=== PATIENT | male | born 1975 | race Two or more races ===

== ENCOUNTER 2024-08-22 18:10 | Inpatient (IN) | payer OTHER ==
[~2024-08-22] VITALS: Ht 177.8 cm; Wt 107.2 kg
--- NOTE | 2024-08-22 18:34 | ED.PDOC ---
HPI Comments HPI: Poor Historian. 48-year-old male [place] emergency department [place] evaluation of midsternal chest pain nonradiating. Patient at the outside facility had an EKG that was unremarkable according to the From the facility who communicated with me on the phone. The doctor also stated the patient was found with elevated ALT and AST. Patient was given aspirin and hydrochlorothiazide and lisinopril. First and 2nd troponins were normal. Patient also had a chest x-ray. Patient also received nitroglycerin sublingual at the other facility. Per report, patient had one-week history of intermittent chest pain he stopped taking his blood pressure medication a month ago. He had a routine dental appointment today and was noted to have blood pressure of 1 70s systolic over 140 diastolic. He was sent to the ER for further evaluation. Patient denies any other acute symptoms. Past Medical History: Hypertension untreated Past Surgical History: Hernia repair Denies any use of drugs or alcohol or tobacco REVIEW OF SYSTEMS: CONSTITUTIONAL: Denies acute: fever, diaphoresis, chills, generalized weakness. HEAD: Denies acute: headache, photophobia Eyes: Denies acute: Double vision, vision loss, eye pain, eye discharge. EARS: Denies acute: tinnitus, hearing loss, ear discharge, ear pain, THROAT: Denies acute: sore throat, swelling, difficulty swallowing , pain with swallowing, change in voice. NECK: Denies acute: neck pain, neck swelling, stiff neck. HEART: Denies acute : palpitations, LUNGS: Denies acute: SOB, wheezing, cough, hemoptysis ABDOMEN: Denies acute: abdominal pain, Nausea, Vomiting, diarrhea, melena , hematemesis, hematochezia SKIN: Denies acute: rash, redness, lesions, itchiness. EXTREMITIES: Denies acute: calf pain, numbness, tingling, weakness, denies pain in extremity. Denies acute: Low back pain. Neuro: Denies acute: focal neurological deficit, motor or sensory focal neurological deficit, tremors, seizure like activity, confusion, dizziness, change in mental status, loss of bowel or bladder function, cauda equina like symptoms. : Denies acute: dysuria, hematuria, flank pain, increase in urinary frequency. PSYCH: Denies acute: hallucination, suicidal ideation, homicidal ideation. PHYSICAL EXAM: General: --no-----acute distress, awake and alert. Head: normocephalic, atraumatic. Neck: supple, trachea is midline, no swelling. Throat: Normal phonation. Eyes:, no erythema, no purulent discharge, no proptosis, no icterus. Heart: regular rate, regular rhythm, no significant murmur appreciated. Lungs: no apparent respiratory distress, Able to speak in full sentences. No wheezing, no rhonchi, no crackles. No stridors Clear to auscultation bilaterally. Abdomen: non tender to palpation, non distended, soft, no guarding, no rebound, + bowel sounds. Neuro: Awake, Alert, oriented to name, self, situation, follows commands GCS=15. Speech is normal. Skin: no petechia, no purpura, no cyanosis, non-pale, not jaundice. Lower extremities: --no - Pitting edema no deformity, no focal swelling, no calf TTP. Makes eye contact. moves all four extremities. Face: no apparent facial droop. Ambulating in the ED independently. ED COURSE: DISCLAIMER: This medical document was created using an electronic medical record system with voice recognition software and computerized dictation system. Although this document has been carefully reviewed, there might still be some phonetic and typographical errors. Occasional wrong-word or "sound-alike" substitutions may have occurred due to the inherent limitations of voice recognition software. These areas are purely typographical due to imperfections of the software programs and do not reflect any compromise in the patient's medical care. Please read the chart carefully and recognize, using context, where these substitutions have occurred. Chief Complaint: High Blood Pressure Time Seen by MD: 18:15 Reviewed Notes: Allergies Allergies: Coded Allergies: NO KNOWN ALLERGIES (Unverified , 08/22/24) Information Source: Patient X-Ray, Labs, Meds, VS Vital Signs Date Time Temp Pulse Resp B/P (MAP) Pulse Ox O2 Delivery O2 Flow Rate FiO2 08/22/24 18:46 98.5 71 16 144/97 (113) 96 98.5 Lab Test 08/22/24 19:50 08/22/24 19:32 08/22/24 18:57 Range/Units Troponin I High Sensitivity Pending < 3 L </=54 ng/L Urine Opiates Screen Pending Urine Fentanyl Screen Pending Urine Barbiturates Screen Pending Urine Phencyclidine Screen Pending Urine Amphetamines Screen Pending Urine Benzodiazepines Screen Pending Urine Cocaine Screen Pending Urine Cannabinoids Screen Pending White Blood Count 8.0 4.4-10.8 10^3/uL Red Blood Count 4.92 4.5-5.90 10^6/uL Hemoglobin 16.3 13.5-17.5 g/dL Hematocrit 46.7 41.0-53.0 % Mean Corpuscular Volume 94.9 80.0-100.0 fL Mean Corpuscular Hemoglobin 33.1 H 28.0-32.0 pg Mean Corpuscular Hemoglobin Concent 34.9 32.0-36.0 g/dL Red Cell Distribution Width 13.8 11.8-14.3 % Platelet Count 220 140-450 10^3/uL Mean Platelet Volume 8.3 6.9-10.8 fL Neutrophils (%) (Auto) 66.5 37.0-80.0 % Lymphocytes (%) (Auto) 23.8 10.0-50.0 % Monocytes (%) (Auto) 8.5 0.0-12.0 % Eosinophils (%) (Auto) 0.8 0.0-7.0 % Basophils (%) (Auto) 0.4 0.0-2.0 % Neutrophils # (Auto) 5.3 1.6-8.6 10 ^3/uL Lymphocytes # (Auto) 1.9 0.4-5.4 10 ^3/uL Monocytes # (Auto) 0.7 0-1.3 10 ^3/uL Eosinophils # (Auto) 0.1 0-0.8 10 ^3/uL Basophils # (Auto) 0 0-0.2 10 ^3/uL Nucleated Red Blood Cells 0.1 % Sodium Level 140 136-145 mmol/L Potassium Level 3.9 3.5-5.1 mmol/L Chloride Level 105 98-107 mmol/L Carbon Dioxide Level 27 20-31 mmol/L Anion Gap 8 5-15 Blood Urea Nitrogen 9 9-23 mg/dL Creatinine 1.15 0.700-1.30 mg/dL Glomerular Filtration Rate Calc 78 >90 mL/min BUN/Creatinine Ratio 7.8 L 10.0-20.0 Serum Glucose 110 H 74-106 mg/dL Lactic Acid Level 1.1 0.4-2.0 mmol/L Calcium Level 9.6 8.7-10.4 mg/dL Total Bilirubin 0.9 0.2-1.0 mg/dL Aspartate Amino Transferase (AST) 93 H 13-40 U/L Alanine Aminotransferase (ALT) 258 H 7-40 U/L Alkaline Phosphatase 93 46-116 U/L Total Protein 7.4 5.7-8.2 g/dL Albumin 5.0 H 3.2-4.8 g/dL Lipase 39 12-53 U/L [place] [address] Ph: [phone] DIAGNOSTIC IMAGING Diagnostic Imaging Report : [id number] Signed PATIENT: CONSTANTIN HEATH ACCT: [id number] UNIT: [id number] : 1975 LOC: ER ROOM / BED: / AGE / SEX: 48 / M ADM STATUS: REG ER SERVICE 26 ORDERING PHYSICIAN: CHRISSIE GRIMM DO PROCEDURE(s): CXRP - CHEST PORTABLE REASON: HTN ORDER NUMBER(s): [id number], ACCESSION NUMBER(s): [id number] CHEST RADIOGRAPH Indication: HTN Technique: Single frontal view of the chest was obtained Comparison: None FINDINGS: Lines and Tubes: None Lungs: No focal consolidation. Pleura: No effusion. No pneumothorax. Cardiomediastinal contours: Unremarkable Bones: No acute osseous abnormality. IMPRESSION: 1. No acute cardiopulmonary disease. ATED BY: JOSE LUIS RODAS Jr., DO DICTATED DATE/TIME: 08/22/241847 SIGNED BY: JOSE LUIS RODAS Jr., DO SIGNED DATE/TIME: 08/22/241847 CC: Departure 1 Departure Time of Disposition: 19:20 Impression: Primary Impression: Chest pain Additional Impression: Elevated LFTs Disposition: ADMITTED INPATIENT Admit to: Tele Condition: Guarded Discharged With: Self I personally scribed for CHRISSIE GRIMM DO ([email or web address]) on 08/22/24 at 18:34. Electronically submitted by Annelise Galindo ([email or web address]). I personally scribed for CHRISSIE GRIMM DO ([email or web address]) on 08/22/24 at 20:22. Electronically submitted by Annelise Galindo ([email or web address]). CHRISSIE GRIMM DO Aug 22, 2024 18:34
--- NOTE | 2024-08-22 18:51 | DVH ---
CHEST RADIOGRAPH Indication: HTN Technique: Single frontal view of the chest was obtained Comparison: None FINDINGS: Lines and Tubes: None Lungs: No focal consolidation. Pleura: No effusion. No pneumothorax. Cardiomediastinal contours: Unremarkable Bones: No acute osseous abnormality. IMPRESSION: 1. No acute cardiopulmonary disease.
[2024-08-22 19:19] LABS: Hematocrit 46.7 % (41.0-53.0); Hemoglobin 16.3 g/dL (13.5-17.5); Mean Corpuscular Hemoglobin 33.1 pg (28.0-32.0); Mean Corpuscular Volume 94.9 fL (80.0-100.0); Nucleated Red Blood Cells % 0.1 %
[2024-08-22 19:30] LABS: Alkaline Phosphatase 93 U/L (46-116); Anion Gap 8 (5-15); BUN/Creatinine Ratio 7.8 (10.0-20.0); Bilirubin, Total 0.9 mg/dL (0.2-1.0); Calcium 9.6 mg/dL (8.7-10.4); Carbon Dioxide 27 mmol/L (20-31); Chloride 105 mmol/L (98-107); Lipase 39 U/L (12-53); Potassium 3.9 mmol/L (3.5-5.1); Sodium 140 mmol/L (136-145); Total Protein 7.4 g/dL (5.7-8.2)
[2024-08-22 19:31] LABS: Alanine Aminotransferase 258 U/L (7-40); Albumin 5.0 g/dL (3.2-4.8); Blood Urea Nitrogen 9 mg/dL (9-23); Glucose 110 mg/dL (74-106)
[2024-08-22 20:31] LABS: Amphetamine Screen, Urine Neg (NEGATIVE); Barbiturate Scree,Urine Neg (NEGATIVE); Benzodiazephine Screen, Urine Neg (NEGATIVE); Cannabinoid Screen, Urine Neg (NEGATIVE); Cocaine Screen, Urine Neg (NEGATIVE); Opiate Scree,Urine Neg (NEGATIVE); Phencyclidine Screen, Urine Neg (NEGATIVE)
--- NOTE | 2024-08-22 23:25 | DVHHP2 ---
History of Present Illness History of Present Illness This is a 48-year-old male with past medical history of hypertension not on any medication [place] evaluation of chest pain. As per patient, having chest pain for one year , intermittent, feeling better with exertion or exercise,3 to 5/10 intensity, localized. Patient went for dental extraction and found his blood pressure was high 170/140 and send patient to ER for further management. As per ER physician in [facility] , having conversation with the physician from the facility where patient transferred-having elevated liver function, received aspirin, HCTZ, lisinopril. Troponin 2 times negative and nitroglycerin sublingual given at the other facility. In [facility] ER patient blood pressure 146/100. Patient stopped blood pressure medicine taking month ago and tried to controlled with diet and exercise. Denies any fever, SOB, cough, headache, photophobia, abdominal pain, dysuria, nausea, any focal weakness. Past Medical History: Hypertension not on any medication Past Surgical History: Bilateral inguinal Hernia repair Denies any use of drugs or alcohol or tobacco Allergy: No known allergy pcp: Unknown Review of Systems Constitutional: No: Fever, Chills, Sweats, Weakness, Malaise, Other Eyes: No: Pain, Vision change, Conjunctivae inflammation, Eyelid inflammation, Other, Redness ENT: No: Ear pain, Ear discharge, Nose pain, Nose discharge, Nose congestion, Mouth pain, Mouth swelling, Throat pain, Throat swelling, Other Respiratory: No: Cough, Dry, Shortness of breath, SOB with excertion, Wheezing, Hemoptysis, Pleuritic Pain, Sputum, Wheezing, Other Cardiovascular: Chest Pain; No: Palpitations, Orthopnea, Paroxysmal Noc. Dyspnea, Edema, Lt Headedness, Other Gastrointestinal: No: Nausea, Vomiting, Abdominal Pain, Diarrhea, Constipation, Melena, Hematochezia, Other Genitourinary: No Dysuria, No Frequency, No Incontinence, No Hematuria, No Retention, No Other Musculoskeletal: No: other, neck pain, shoulder pain, arm pain, back pain, hand pain, leg pain, foot pain Skin: No: Rash, Lesions, Jaundice, Bruising, Other Neurological: No: Weakness, Numbness, Incoordination, Change in speech, Confusion, Seizures, Other Allergies: Coded Allergies: NO KNOWN ALLERGIES (Unverified , 08/22/24) Exam Vital Signs Vital Signs Date Time Temp Pulse Resp B/P (MAP) Pulse Ox O2 Delivery O2 Flow Rate FiO2 08/22/24 20:55 90.0 90 18 146/100 (115) 95 90.0 General Appearance: Alert, Oriented X3, Cooperative, No acute distress HEENT: PERRLA, EOMI Respiratory: Clear to auscultation, Normal air movement Cardiovascular: Regular rate, Normal S1, Normal S2 Abdominal: Normal bowel sounds, Soft, No tenderness, No hepatospenomegaly Extremities: No clubbing, No cyanosis, Normal pulses, No tenderness/swelling Skin: No rashes, No breakdown Neuro: Normal gait, Normal speech, Strength at 5/5 X4 ext Labs/Xrays Labs Test 08/22/24 21:54 08/22/24 19:32 08/22/24 18:57 Range/Units Troponin I High Sensitivity < 3 L </=54 ng/L Urine Opiates Screen Neg NEGATIVE Urine Fentanyl Screen Neg NEGATIVE Urine Barbiturates Screen Neg NEGATIVE Urine Phencyclidine Screen Neg NEGATIVE Urine Amphetamines Screen Neg NEGATIVE Urine Benzodiazepines Screen Neg NEGATIVE Urine Cocaine Screen Neg NEGATIVE Urine Cannabinoids Screen Neg NEGATIVE White Blood Count 8.0 4.4-10.8 10^3/uL Red Blood Count 4.92 4.5-5.90 10^6/uL Hemoglobin 16.3 13.5-17.5 g/dL Hematocrit 46.7 41.0-53.0 % Mean Corpuscular Volume 94.9 80.0-100.0 fL Mean Corpuscular Hemoglobin 33.1 H 28.0-32.0 pg Mean Corpuscular Hemoglobin Concent 34.9 32.0-36.0 g/dL Red Cell Distribution Width 13.8 11.8-14.3 % Platelet Count 220 140-450 10^3/uL Mean Platelet Volume 8.3 6.9-10.8 fL Neutrophils (%) (Auto) 66.5 37.0-80.0 % Lymphocytes (%) (Auto) 23.8 10.0-50.0 % Monocytes (%) (Auto) 8.5 0.0-12.0 % Eosinophils (%) (Auto) 0.8 0.0-7.0 % Basophils (%) (Auto) 0.4 0.0-2.0 % Neutrophils # (Auto) 5.3 1.6-8.6 10 ^3/uL Lymphocytes # (Auto) 1.9 0.4-5.4 10 ^3/uL Monocytes # (Auto) 0.7 0-1.3 10 ^3/uL Eosinophils # (Auto) 0.1 0-0.8 10 ^3/uL Basophils # (Auto) 0 0-0.2 10 ^3/uL Nucleated Red Blood Cells 0.1 % Sodium Level 140 136-145 mmol/L Potassium Level 3.9 3.5-5.1 mmol/L Chloride Level 105 98-107 mmol/L Carbon Dioxide Level 27 20-31 mmol/L Anion Gap 8 5-15 Blood Urea Nitrogen 9 9-23 mg/dL Creatinine 1.15 0.700-1.30 mg/dL Glomerular Filtration Rate Calc 78 >90 mL/min BUN/Creatinine Ratio 7.8 L 10.0-20.0 Serum Glucose 110 H 74-106 mg/dL Lactic Acid Level 1.1 0.4-2.0 mmol/L Calcium Level 9.6 8.7-10.4 mg/dL Total Bilirubin 0.9 0.2-1.0 mg/dL Aspartate Amino Transferase (AST) 93 H 13-40 U/L Alanine Aminotransferase (ALT) 258 H 7-40 U/L Alkaline Phosphatase 93 46-116 U/L Total Protein 7.4 5.7-8.2 g/dL Albumin 5.0 H 3.2-4.8 g/dL Lipase 39 12-53 U/L SEPSIS Sepsis Screen Date sepsis recognized/suspect: Aug 22, 2024 Time Sepsis recognized/suspect: 1814 Recent Procedure: No On Antibiotic Therapy: No Respiratory Rate >20: No Heart Rate >90: No Temp<36 C (96.8 F) or >38.3 C: No SBP <90 or MAP <65 mmHG: No New Acute Mental Status Change: No Is the patient on CPAP, BIPAP,: No Physician Orders Milk Handler (08/22/24 ) Chest Portable (08/22/24 18:27) Electrocardigram (08/22/24 18:27) Vital Signs Date Time Temp Pulse Resp B/P (MAP) Pulse Ox O2 Delivery O2 Flow Rate FiO2 08/22/24 20:55 90.0 90 18 146/100 (115) 95 90.0 08/22/24 18:46 98.5 71 16 144/97 (113 96 98.5 Laboratory Tests Test 08/22/24 18:57 Lactic Acid Level 1.1 mmol/L (0.4-2.0) White Blood Count 8.0 10^3/uL (4.4-10.8) Assessment/Plan Assessment/Plan # CHEST PAIN RULE OUT ACS -Patient transferred from another facility to rule out chest pain -Received aspirin, nitroglycerin, lisinopril, HCTZ another facility -CXR-no acute cardiopulmonary disease -Troponin<3, repeat troponin <3 -Lipase 39 -Lactic acid 1.1 -Urine drug screening-negative -[id number] mg p.o. daily -Hold statin for now due to elevated liver enzymes -Nitroglycerin sublingually p.r.n. for chest pain -[id number] mg p.o. daily # UNCONTROLLED HYPERTENSION -In ER patient blood pressure 146/100 -Start losartan 25 mg p.o. daily -Monitor blood pressure # ELEVATED LIVER ENZYME -AST 93, ALT 258, ALP 93 -Ultrasound abdomen -Acute hepatitis panel -Lipid profile, THS, A1c # Obesity, BMI 27.5 -Lifestyle modification Diet: Hepatic diet GI prophylaxis: Pantoprazole 40 mg p.o. daily DVT prophylaxis: Ambulating Dose of care discussions,27 minute spent. Full code status. Case discussed with Dr. Charles Plan discussed with: Patient, Other (NURSE) Date of Service: Aug 22, 2024 Billing Provider: ALICIA CHARLES MD Common Visit Codes: [id number] INP/OBS CARE (HIGH) Secondary Visit Codes: [id number] CARE PLAN 30 MINUTES HERBERTH HUTCHISON RESIDENT Aug 22, 2024 23:25
[2024-08-22] MEDS ORDERED: MORPHINE SULFATE INJ 2 MG/ml SYRG IV PRN (23:30)
[2024-08-22] MEDS ORDERED: NITROGLYCERIN 0.4 MG SL TAB SL PRN (23:30)
[2024-08-23] VITALS (7 sets, daily range): BP systolic 116–131; BP diastolic 75–95; PULSE 66–88; RESP 16–19; TEMP 97–98; O2SAT 95–98
--- NOTE | 2024-08-23 01:29 | DVH ---
CLINICAL INFORMATION: 48 years old, Male; elevated alkaline phosophatase. TECHNIQUE: Grayscale sonographic imaging of the abdomen was performed, assisted by color Doppler haroon hnique. COMPARISON: None FINDINGS: The gallbladder wall measures 3 mm in thickness, within normal limits. No stones are seen. Negative reported sonographic Cornejo's sign. The common bile duct measures 5 mm in diameter, within normal li mits. The liver measures 17.0 cm and demonstrates homogeneous echotexture. The pancreas was not visualized. IMPRESSION: 1. No cholelithiasis or sonographic evidence for acute cholecystitis. 2. Mild hepatomegaly.
[2024-08-23] MEDS: LOSARTAN POTASSIUM 25 MG TAB PO ONE (03:19)
[2024-08-23 07:48] LABS: Triglycerides 130 mg/dL (< 150)
[2024-08-23 07:49] LABS: Cholesterol 175 mg/dL (< 200)
[2024-08-23 07:51] LABS: HDL Cholesterol 90 mg/dL (40-59)
[2024-08-23] MEDS: PANTOPRAZOLE 40 MG/10 ML VIAL INJ IV SCH (10:11)
[2024-08-23] MEDS: LOSARTAN POTASSIUM 25 MG TAB PO SCH (10:11)
[2024-08-23 10:52] LABS: Urine Protein, UAD Negative (Negative)
--- NOTE | 2024-08-23 10:59 | DVHPNRES ---
Progress Note Date Seen: Aug 23, 2024 Resident Creating Document: WALLY MILLER RESIDENT Medical Necessity Reason Pt with a Central, PICC or Fol: No Subjective Review of Systems This is a 48-year-old male with hypertension not on medications who was transferred from [facility] for the evaluation of chest pain and hypertension. Patient is A&O x3, reports that he stopped his blood pressure medication few months back as he was told that medications are poison to human body. He reports chest pain, constant for 24 hours, nonexertional, pressure type, nonradiating, improves with stretching his arms, for the past 1 year, also reports palpitations and shortness of breaths during the pain episode. Patient denies nausea, vomiting, diaphoresis, any abdominal or urinary symptoms at this time. EKG completed in [facility], showed sinus rhythm, LVH criteria. Troponins negative. 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 Regular heart sounds, no lower extremity edema. Reports feeling fine. No active chest pain. Objective vital signs Vital Sign Date Time Temp Pulse Resp B/P (MAP) Pulse Ox O2 Delivery O2 Flow Rate FiO2 08/23/24 10:11 135/74 08/23/24 08:42 97.4 66 16 97 97.4 08/23/24 04:00 Room Air* 0 21 medications Current Medications Medications Dose Ordered Sig/Jonelle Route Start Time Stop Time Status Last Admin Dose Admin Nitroglycerin 0.4 mg Q5MINP PRN SL 08/22/24 23:30 Morphine Sulfate 2 mg Q30M PRN IV 08/22/24 23:30 Losartan Potassium 25 mg DAILY PO 08/23/24 10:00 08/23/24 10:11 25 MG Aspirin 81 mg DAILY PO 08/23/24 10:00 08/23/24 10:12 81 MG Pantoprazole Sodium 40 mg DAILY IV 08/23/24 10:00 08/23/24 10:11 40 MG Examination Obese male patient comfortably sitting in the bed, no acute distress General: Obese, afebrile, palor, mucosae are moist Cardiovascular: Regular S1 and S2. No murmurs, gallops or rubs. No JVD elevation. No pedal edema Respiratory: Normal B/L air entry on room air. Clear lung sounds on auscultation Abdomen: Soft, nontender, nondistended, normoactive bowel sounds, no rebound tenderness, no organomegaly, no masses Genitourinary: Deferred MSK/skin: Mobilizes 4 limbs. Skin is dry and warm Neurological: No motor, no sensitive deficits, normal speech. Pupils are isocoric and reactive. Psych/Mental Status: A/Ox3 laboratory and microbiology Laboratory Tests 08/22/24 18:57 Test 08/22/24 18:57 Range/Units Serum Glucose 110 H 74-106 mg/dL Labs and/or images reviewed: Labs reviewed by me, Image(s) reviewed by me Problem List/Assessment/Plan Problem List/Assessment/Plan Acute chest pain, rule out ACS Uncontrolled hypertension Medication noncompliance Continue aspirin and atorvastatin daily 10 year ASCVD risk score 3% EKG shows LVH criteria Cardiology consulted given risk factors as his hypertension and obesity for stress test Remarkable family history for stroke and diabetes in parents Troponins unremarkable Started losartan 25 mg daily cardiac diet Likely Nonalcoholic steatohepatitis Transaminitis Hepatitis panel pending Obesity Counseled regarding lifestyle and dietary habits Pantoprazole 40 mg daily DVT prophylaxis not indicated can patient is ambulating Plan discussed with patient in which all questions have been answered Goals of care discussed for more than 20 minutes, full code status Case discussed with Dr. Bolivar, cardiology consultation pending. Plan discussed with: Patient My Orders My Orders Orders - WALLY MILLER Procedure Category Date Status Time Urinalysis LAB 08/23/24 In Process 09:05 Date of Service: Aug 23, 2024 Billing Provider: ANNIKA BERNARD MD Common Visit Codes: [id number] INP/OBS CARE(HIGH) WALLY MILLER Aug 23, 2024 10:59 ANNIKA BERNARD MD Aug 25, 2024 00:23
--- NOTE | 2024-08-23 11:25 | ECG ---
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
[2024-08-24] VITALS (7 sets, daily range): BP systolic 116–149; BP diastolic 66–89; PULSE 75–115; RESP 16–18; TEMP 97–98.1; O2SAT 96–98
[2024-08-24 07:48] LABS: Hematocrit 49.9 % (41.0-53.0); Hemoglobin 17.4 g/dL (13.5-17.5); Mean Corpuscular Hemoglobin 32.9 pg (28.0-32.0); Mean Corpuscular Volume 94.4 fL (80.0-100.0); Nucleated Red Blood Cells % 0.2 %
[2024-08-24 08:02] LABS: Anion Gap 13 (5-15); Carbon Dioxide 22 mmol/L (20-31)
[2024-08-24 08:05] LABS: Calcium 10.3 mg/dL (8.7-10.4); Chloride 104 mmol/L (98-107); Potassium 3.7 mmol/L (3.5-5.1); Sodium 139 mmol/L (136-145)
[2024-08-24 08:07] LABS: BUN/Creatinine Ratio 9.8 (10.0-20.0); Blood Urea Nitrogen 13 mg/dL (9-23); Glucose 82 mg/dL (74-106)
[2024-08-24] MEDS ORDERED: LOSA-533 PO (12:29)
--- NOTE | 2024-08-24 14:38 | DVHDSRES ---
Discharge Summary Date of Admission Resident Creating Document: CHANDLER OWUSU RESIDENT Aug 22, 2024 at 23:24 Date of Discharge: Aug 24, 2024 Admitting Diagnosis Acute chest pain rule out ACS Wounds: No wounds present at this time. Labs/Diagnostic Data: Laboratory Results Test 08/24/24 06:00 08/23/24 10:30 08/23/24 06:45 08/22/24 21:54 White Blood Count 8.7 10^3/uL (4.4-10.8) Red Blood Count 5.29 10^6/uL (4.5-5.90) Hemoglobin 17.4 g/dL (13.5-17.5) Hematocrit 49.9 % (41.0-53.0) Mean Corpuscular Volume 94.4 fL (80.0-100.0) Mean Corpuscular Hemoglobin 32.9 pg (28.0-32.0) Mean Corpuscular Hemoglobin Concent 34.9 g/dL (32.0-36.0) Red Cell Distribution Width 13.8 % (11.8-14.3) Platelet Count 248 10^3/uL (140-450) Mean Platelet Volume 8.5 fL (6.9-10.8) Neutrophils (%) (Auto) 56.1 % (37.0-80.0) Lymphocytes (%) (Auto) 32.8 % (10.0-50.0) Monocytes (%) (Auto) 8.5 % (0.0-12.0) Eosinophils (%) (Auto) 2.1 % (0.0-7.0) Basophils (%) (Auto) 0.5 % (0.0-2.0) Neutrophils # (Auto) 4.9 10 ^3/uL (1.6-8.6) Lymphocytes # (Auto) 2.8 10 ^3/uL (0.4-5.4) Monocytes # (Auto) 0.7 10 ^3/uL (0-1.3) Eosinophils # (Auto) 0.2 10 ^3/uL (0-0.8) Basophils # (Auto) 0 10 ^3/uL (0-0.2) Nucleated Red Blood Cells 0.2 % Sodium Level 139 mmol/L (136-145) Potassium Level 3.7 mmol/L (3.5-5.1) Chloride Level 104 mmol/L (98-107) Carbon Dioxide Level 22 mmol/L (20-31) Anion Gap 13 (5-15) Blood Urea Nitrogen 13 mg/dL (9-23) Creatinine 1.33 mg/dL (0.700-1.30) Glomerular Filtration Rate Calc 65 mL/min (>90) BUN/Creatinine Ratio 9.8 (10.0-20.0) Serum Glucose 82 mg/dL (74-106) Calcium Level 10.3 mg/dL (8.7-10.4) Urine Color Yellow (Yellow) Urine Clarity Clear (Clear) Urine pH 5.5 (5.0-9.0) Urine Specific [place] 1.023 (1.001-1.035) Urine Protein Negative (Negative) Urine Ketones 1+ (Negative) Urine Blood Negative /uL (Negative) Urine Nitrite Negative (Negative) Urine Bilirubin Negative (Negative) Urine Urobilinogen Normal mg/dL (Negative) Urine Leukocyte Esterase Negative /uL (Negative) Urine RBC 1 /hpf (0 - 3) Urine Microscopic WBC 1 /HPF (0-3) Urine Squamous Epithelial Cells None seen /hpf (<5) Urine Bacteria None seen /hpf (None Seen) Urine Hyaline Casts Few /lpf (0 - 2) Urine Mucus Few (None Seen) Urine Glucose Normal mg/dL (Normal) Hemoglobin A1c 5.1 % A1C (<5.7) Triglycerides Level 130 mg/dL (< 150) Cholesterol Level 175 mg/dL (< 200) LDL Cholesterol 63 mg/dL (< 100) HDL Cholesterol 90 mg/dL (40-59) Thyroid Stimulating Hormone (TSH) 1.31 uIU/mL (0.55-4.78) Troponin I High Sensitivity < 3 ng/L (</=54) Test 08/22/24 19:32 08/22/24 18:57 Urine Opiates Screen Neg (NEGATIVE) Urine Fentanyl Screen Neg (NEGATIVE) Urine Barbiturates Screen Neg (NEGATIVE) Urine Phencyclidine Screen Neg (NEGATIVE) Urine Amphetamines Screen Neg (NEGATIVE) Urine Benzodiazepines Screen Neg (NEGATIVE) Urine Cocaine Screen Neg (NEGATIVE) Urine Cannabinoids Screen Neg (NEGATIVE) Lactic Acid Level 1.1 mmol/L (0.4-2.0) Total Bilirubin 0.9 mg/dL (0.2-1.0) Aspartate Amino Transferase (AST) 93 U/L (13-40) Alanine Aminotransferase (ALT) 258 U/L (7-40) Alkaline Phosphatase 93 U/L (46-116) Total Protein 7.4 g/dL (5.7-8.2) Albumin 5.0 g/dL (3.2-4.8) Lipase 39 U/L (12-53) Other Laboratory Tests 08/24/24 06:00 Brief Hx & Hospital Course: This is a 48-year-old male with hypertension not on medications who was transferred from [facility] for the evaluation of chest pain and hypertension. Patient is A&O x3, reports that he stopped his blood pressure medication few months back as he was told that medications are poison to human body. He reports chest pain, constant for 24 hours, nonexertional, pressure type, nonradiating, improves with stretching his arms, for the past 1 year, also reported palpitations and shortness of breaths during the pain episode. Patient denied nausea, vomiting, diaphoresis, any abdominal or urinary symptoms on admission. EKG was performed on admission and showed sinus rhythm with LVH criteria but no ST segment elevation or depression at this time. Troponins came back negative. We explained to the patient the need of performing an echocardiogram today and a stress test tomorrow a.m. to completely rule out ACS. The patient declined the test and stated that he had an appointment with a dentist for molar removal tomorrow and that he we will leave AMA. We explained the importance of staying and performing these two tests which we will completely rule out/rule in, acute coronary syndrome. Patient was aware of all recommendations but still went AMA. Consults/Reason for consult Cardiology for stress test Operations or Procedures CHEST RADIOGRAPH Indication: HTN Technique: Single frontal view of the chest was obtained Comparison: None FINDINGS: Lines and Tubes: None Lungs: No focal consolidation. Pleura: No effusion. No pneumothorax. Cardiomediastinal contours: Unremarkable Bones: No acute osseous abnormality. IMPRESSION: 1. No acute cardiopulmonary disease. CLINICAL INFORMATION: 48 years old, Male; elevated alkaline phosophatase. TECHNIQUE: Grayscale sonographic imaging of the abdomen was performed, assisted by color Doppler technique. COMPARISON: None FINDINGS: The gallbladder wall measures 3 mm in thickness, within normal limits. No stones are seen. Negative reported sonographic Cornejo's sign. The common bile duct measures 5 mm in diameter, within normal limits. The liver measures 17.0 cm and demonstrates homogeneous echotexture. The pancreas was not visualized. IMPRESSION: 1. No cholelithiasis or sonographic evidence for acute cholecystitis. 2. Mild hepatomegaly. Condition at Discharge: Undetermined Final Diagnosis/Problems List Acute chest pain, rule out ACS Uncontrolled hypertension Medication noncompliance Acute Transaminitis Likely Nonalcoholic steatohepatitis Morbid obesity Discharge Disposition: AMA Discharge Instruct/Medications Medications: Losartan 25 mg daily Scheduled Losartan Potassium (Losartan Potassium), 1 TAB PO DAILY Discharge Statement: "Patient was advised to return to the ER or call 911 if any headaches, dizziness, shortness of breath, chest pain, abdominal pain, bleeding, fevers, or worsening of medical condition. Patient was counseled about treatment plan, medications, possible side effects, patientverbalized understanding. All questions were answered to the best of my ability. This discharge took greater then 30 minutes in planning, reviewing documentation, counseling the patient, and discussing with other team members." ASSESSMENT ASSESSMENT Assessment Date of Service: Aug 24, 2024 Billing Provider: ANNIKA BERNARD MD Common Visit Codes: 61928-HTO/OBS DISCH DAY >30min CHANDLER OWUSU RESIDENT Aug 24, 2024 14:38 ANNIKA BERNARD MD Aug 25, 2024 21:44
[2024-08-25 10:14] LABS: Hepatitis B Surface Antigen Negative (Negative)
[2024-08-25 10:38] LABS: Hepatitis C Antibody Negative (Negative)
== END 2024-08-24 12:40 | disposition left against medical advice (07) | DRG 311 ==
LOC: ER 18:10 → OVERFLOW 23:24 → TELE-CENTR 23:25
PROVIDERS: ADMIT Internal Medicine; ATTEND Internal Medicine
DX: I24.9 Acute ischemic heart disease, unspecified (principal); K75.81 Nonalcoholic steatohepatitis (NASH); E66.01 Morbid (severe) obesity due to excess calories; Z68.33 Body mass index [BMI] 33.0-33.9, adult; I10 Essential (primary) hypertension; R74.8 Abnormal levels of other serum enzymes; Z79.899 Other long term (current) drug therapy; Z91.148 Patient's other noncompliance with medication regimen for other reason; Z53.29 Procedure and treatment not carried out because of patient's decision for other reasons
CPT/HCPCS: 36415; 71045; 76705; 80048; 80053; 80061; 80074; 80307; 81001; 83036; 83605; 83690; 84443; 84484; 85025; 93005; G0378; J2470